=== PATIENT | male | born 1990 | race Caucasian/White ===

== ENCOUNTER 2022-08-05 21:15 | Inpatient (IN) | payer OTHER ==
[~2022-08-05] VITALS: Ht 167.6 cm; Wt 61.0 kg
[2022-08-05 23:25] LABS: BASOPHILS % (AUTO) 0.4 % (0.0-2.0); EOSINOPHILS % (AUTO) 1.3 % (1.0-6.0); HEMATOCRIT 43.8 % (41-53); HEMOGLOBIN 14.8 g/dL (13.5-17.5); LYMPHOCYTES # (AUTO) 0.9 K/uL (1.0-4.8); LYMPHOCYTES % (AUTO) 9.3 % (22.0-44.0); MEAN CORPUSCULAR HEMOGLOBIN 30.4 pg (26.0-34.0); MEAN CORPUSCULAR HGB CONC 33.8 G/dL (31.0-37.0); MEAN CORPUSCULAR VOLUME 90 fL (80-100); MONOCYTES # (AUTO) 1.4 K/uL (0.1-1.0); MONOCYTES % (AUTO) 13.9 % (2.0-9.0); NEUTROPHILS # (AUTO) 7.5 K/uL (1.8-7.7); NEUTROPHILS % (AUTO) 75.1 % (40.0-70.0); PLATELET COUNT (AUTO) 239 K/uL (150-450); RED BLOOD CELL COUNT(AUTO) 4.87 MIL/uL (4.50-5.90)
[2022-08-05 23:39] LABS: ANION GAP 6 mmol/L (8-16); CALCIUM, TOTAL 8.8 mg/dL (8.8-10.5); CARBON DIOXIDE 31 mmol/L (22-29); CHLORIDE 100 mmol/L (98-107); CREATININE 1.08 mg/dL (0.60-1.30); GLUCOSE,RANDOM 94 mg/dL (70-110); SODIUM SERUM 137 mmol/L (136-145); UREA NITROGEN, BLOOD 13 mg/dL (7-18)
[2022-08-05 23:40] LABS: GLOMERULAR FILTR. RATE CALC > 60 mL/min (>60)
[2022-08-05 23:45] LABS: ALANINE AMINOTRANSFERASE 19 U/L (12-78); ALBUMIN 4.4 g/dL (3.4-5.0); ALKALINE PHOSPHATASE 63 U/L (46-116); ASPARTATE AMINOTRANSFERASE 16 U/L (15-37); BILIRUBIN,TOTAL 0.8 mg/dL (0.1-1.0); TOTAL PROTEIN, SERUM 7.7 g/dL (6.4-8.2)
[2022-08-05] MEDS ORDERED: ACETAMINOPHEN 500 MG TABLET PO ONE (23:45)
[2022-08-05 23:46] LABS: ACETAMINOPHEN < 2 mcg/mL (10-30); SALICYLATE < 2.8 mg/dL (2.8-20.0)
[2022-08-05 23:51] LABS: COVID AG,FIA SOURCE NASAL SWAB
[2022-08-06 00:28] LABS: AMPHET/METH SCREEN,URINE NEGATIVE (NEGATIVE); BARBITURATE SCREEN, URINE NEGATIVE (NEGATIVE); BENZODIAZEPINES SCREEN,URINE NEGATIVE (NEGATIVE); CANNABINOID SCREEN,URINE NEGATIVE (NEGATIVE); COCAINE SCREEN,URINE NEGATIVE (NEGATIVE); METHADONE SCREEN, URINE NEGATIVE (NEGATIVE); OPIATE SCREEN,URINE NEGATIVE (NEGATIVE)
[2022-08-06 00:29] LABS: PHENCYCLIDINE SCREEN,URINE NEGATIVE (NEGATIVE)
[2022-08-06] MEDS ORDERED: 0.9% SODIUM CHLORIDE 10 ML SYRINGE IVP PRN (01:45)
[2022-08-06] MEDS ORDERED: ONDANSETRON HCL 4 MG/2 ML VIAL IVP PRN (01:45)
[2022-08-06] MEDS ORDERED: ACETAMINOPHEN 325 MG TABLET PO PRN (01:45)
[2022-08-06 04:00] VITALS: BP 118/63
[2022-08-06] MEDS ORDERED: PNEUMOCOCCAL VACCINE POLYVALENT 0.5 ML VIAL [PPSV23] IM. ONE (06:00)
[2022-08-06] MEDS ORDERED: INFLUENZA VIRUS VACCINE QVS 2022-23 (6MO+)/PF 60 MCG/0.5 ML SYRINGE IM. ONE (06:00)
[2022-08-06] MEDS ORDERED: METOCLOPRAMIDE HCL 5 MG/ML 2 ML VIAL IVP PRN (08:15)
[2022-08-06] MEDS ORDERED: DICYCLOMINE HCL 10 MG CAPSULE PO PRN (08:15)
[2022-08-06] MEDS ORDERED: LOPERAMIDE HCL 2 MG CAPSULE PO PRN (08:15)
[2022-08-06] MEDS: ACETAMINOPHEN 325 MG TABLET PO PRN ×2 (18:46→20:48)
[2022-08-06 20:12] VITALS: BP 107/63
[2022-08-06] MEDS: TEMAZEPAM 15 MG CAPSULE PO SCH (20:48)
[2022-08-07 04:25] VITALS: BP 108/70
[2022-08-07 07:57] VITALS: BP 98/51
[2022-08-07 15:22] VITALS: BP 103/58
[2022-08-07] MEDS ORDERED: BENZOCAINE/MENTHOL LOZENGE PO PRN (17:15)
[2022-08-07 20:00] VITALS: BP 115/58
[2022-08-07] MEDS: TEMAZEPAM 15 MG CAPSULE PO SCH (21:15)
[2022-08-08 05:35] VITALS: BP 122/66
[2022-08-08 07:34] VITALS: BP 125/55
[2022-08-08 15:37] VITALS: BP 122/60
[2022-08-08] MEDS: TEMAZEPAM 15 MG CAPSULE PO SCH (20:48)
[2022-08-08 21:00] VITALS: BP 121/76
[2022-08-08] MEDS: ACETAMINOPHEN 325 MG TABLET PO PRN (21:37)
[2022-08-09 05:00] VITALS: BP 102/68
[2022-08-09 07:24] VITALS: BP 110/59
[2022-08-09] MEDS ORDERED: TEMA15CA PO (14:18)
[2022-08-09 15:47] VITALS: BP 103/53
[2022-08-09] MEDS: TEMAZEPAM 15 MG CAPSULE PO SCH (19:57)
[2022-08-09 20:41] VITALS: BP 122/57
[2022-08-10 04:47] VITALS: BP 120/72
== END 2022-08-10 08:48 | DRG 91 ==
LOC: EMS 21:19 → 6S 08-06 00:47
PROVIDERS: ADMIT Internal Medicine; ATTEND Internal Medicine
DX: G92.9 Unspecified toxic encephalopathy (principal); U07.1 COVID-19; J45.909 Unspecified asthma, uncomplicated; F11.90 Opioid use, unspecified, uncomplicated; F41.9 Anxiety disorder, unspecified; R55 Syncope and collapse; F43.21 Adjustment disorder with depressed mood; Z78.9 Other specified health status; Z79.899 Other long term (current) drug therapy
CPT/HCPCS: 70450; 80053; 80307; 85025; 93005; 99285; G0480; G0481

== ENCOUNTER 2025-03-03 15:21 | Emergency (ER) | payer OTHER ==
[~2025-03-03] VITALS: Ht 167.6 cm; Wt 77.3 kg
[~2025-03-03 15:21] MED LIST: TEMA15CA PO
[2025-03-03 15:26] VITALS: TEMP 97.9
[2025-03-03 17:00] VITALS: BP 119/65; PULSE 85; RESP 15; O2SAT 98
[2025-03-03] MEDS ORDERED: SENN-376 PO (17:29)
[2025-03-03] MEDS ORDERED: POLY119P3 PO (17:29)
== END 2025-03-03 18:02 | disposition home or self-care (01) ==
LOC: EMS 15:21
DX: K62.5 Hemorrhage of anus and rectum (principal); K59.09 Other constipation; J45.909 Unspecified asthma, uncomplicated; K64.9 Unspecified hemorrhoids; Z79.899 Other long term (current) drug therapy
CPT/HCPCS: 99282; Z7502

== ENCOUNTER 2025-04-01 18:23 | Emergency (ER) | payer OTHER ==
[~2025-04-01] VITALS: Ht 167.6 cm; Wt 59.0 kg
[~2025-04-01 18:23] MED LIST changes: +POLY119P3 PO; +SENN-376 PO
[2025-04-01] MEDS: IBUPROFEN 600 MG TABLET PO ONE (19:11)
[2025-04-01] MEDS ORDERED: IBUP-1492 PO (22:20)
[2025-04-01 22:34] VITALS: BP 125/85; PULSE 85; RESP 18; TEMP 98.905352; O2SAT 100
== END 2025-04-01 22:34 | disposition home or self-care (01) ==
LOC: EMS 18:23
DX: M79.671 Pain in right foot (principal); J45.909 Unspecified asthma, uncomplicated; Z79.899 Other long term (current) drug therapy
CPT/HCPCS: 99283